=== PATIENT | male | born 1960 | race Caucasian/White ===

== ENCOUNTER → 2017-04-03 | Outpatient (CLI) | payer MEDICARE, BC ==
[2015-04-15 16:20] VITALS: BP 125/73
[~2017-04-03] MED LIST: ASPI-482 PO; FLUO40CA2 PO; FURO80TA3 PO; GABA-585 PO; INSU100C SQ; LEVO200T PO; LISI-338 PO; OMEP40CA5 PO; SIMV40TA3 PO
--- NOTE | 2017-04-03 10:21 | RAD ---
Indication: Right upper quadrant pain. Time of exam 10 0 4:00 AM There are surgical clips in the gallbladder fossa. The bowel gas pattern is nonobstructed. No pathologic calcifications are seen. Impression: No acute abnormality is detected.
== END | disposition home or self-care (01) ==
LOC: DXRAD 09:53
PROVIDERS: ATTEND Physician Assistant
DX: R10.11 Right upper quadrant pain (principal)
CPT/HCPCS: 74020

== ENCOUNTER → 2017-10-28 | Outpatient (CLI) | payer MEDICARE, BC ==
[2015-04-15 16:20] VITALS: BP 125/73
--- NOTE | 2017-10-28 13:13 | RAD ---
Left ankle, 3 views, 10/28/2017: History: Pain and swelling No ankle fracture or dislocation is identified. There is moderate diffuse soft tissue swelling. Arterial calcifications are noted. Left foot, 3 views, 10/28/2017: There is deformity of the navicular bone suggesting old trauma versus avascular necrosis. There is severe associated degenerative change at its articulation with the cuneiform bones and to a lesser degree at the talonavicular articulation. There is chronic bony fragmentation along the dorsal aspect of the ventricular bowel. No acute fracture or dislocation is identified. IMPRESSION: 1. Navicular bone deformity and mild fragmentation with associated severe degenerative change at its articulation with the cuneiform bones. The findings suggest old trauma versus avascular necrosis. 2. No acute bony abnormality is detected.
== END | disposition home or self-care (01) ==
LOC: DXRAD 12:15
PROVIDERS: ATTEND Podiatrist Foot & Ankle Surgery
DX: M19.072 Primary osteoarthritis, left ankle and foot (principal)
CPT/HCPCS: 73610; 73630

== ENCOUNTER → 2017-12-30 | Outpatient (CLI) | payer MEDICARE, BC ==
[2015-04-15 16:20] VITALS: BP 125/73
--- NOTE | 2017-12-30 14:30 | RAD ---
Left wrist, 3 views, 12/30/2017: History: Wrist pain No acute fracture or dislocation is identified. No significant arthritic change is seen. Arterial calcifications are evident. IMPRESSION: No acute left wrist abnormality is detected.
== END | disposition home or self-care (01) ==
LOC: PMG 13:54
PROVIDERS: ATTEND Physician Assistant
DX: I70.298 Other atherosclerosis of native arteries of extremities, other extremity (principal)
CPT/HCPCS: 73110

== ENCOUNTER → 2018-02-24 | Outpatient (CLI) | payer MEDICARE, BC ==
[2015-04-15 16:20] VITALS: BP 125/73
--- NOTE | 2018-02-24 15:24 | RAD ---
History: Foot and ankle pain, Charcot arthropathy. Comparison: Left ankle and foot radiographs October 28, 2017. Findings: Weightbearing AP, lateral, and oblique views of the left ankle. There is diffuse soft tissue swelling of the left ankle. No acute fracture or dislocation is identified. No significant tibiotalar degeneration is seen. Weight-bearing AP, lateral, and oblique views of the left foot. Areas of osteolysis as well as sclerosis can be seen involving the midfoot. Findings would be compatible with provided history of Charcot arthropathy. No Lisfranc disruption is identified. Foot arch appears preserved. Small plantar calcaneal enthesophyte is present. There is soft tissue swelling of the dorsal foot. Arterial calcifications are seen. Impression: 1. Appearance of the midfoot would be compatible with provided history of Charcot arthropathy, fairly similar to previous study. 2. No Lisfranc disruption is identified at this time. 3. Soft tissue swelling of the ankle and foot. Electronically signed by: Eulogio Johnson MD (02/24/2018 3:21 PM) [facility]
== END | disposition home or self-care (01) ==
LOC: DXRAD 11:52
PROVIDERS: ATTEND Podiatrist Foot & Ankle Surgery
DX: M79.89 Other specified soft tissue disorders (principal)
CPT/HCPCS: 73610; 73630

== ENCOUNTER → 2019-01-11 | Outpatient (CLI) | payer MEDICARE, BC ==
[2015-04-15 16:20] VITALS: BP 125/73
--- NOTE | 2019-01-11 13:25 | RAD ---
EXAM: Thyroid sonogram. HISTORY: Thyromegaly. TECHNIQUE: Sonographic imaging of the thyroid was performed. COMPARISON: None. FINDINGS: The right thyroid lobe measures 4.5 x 1.2 x 1.6 cm. The left thyroid lobe measures 3.0 x 1.4 x 1.1 cm. The thyroid isthmus measures 2.6 mm in thickness. The thyroid parenchyma is diffusely heterogeneous. There is a 9 x 6 x 3 mm hypoechoic lesion within the inferior right thyroid lobe, possibly a hypoechoic nodule or cyst. There is a smaller hypoechoic nodule within the superior right thyroid lobe measuring 7 x 5 x 2 mm. No discrete lesion is seen within the left thyroid lobe. IMPRESSION: Slightly decreased left thyroid size and diffusely heterogeneous thyroid parenchyma. There are subcentimeter lesions within the right thyroid lobe, the largest of which measures 9 mm and may be a slightly complicated cyst or solid nodule. Electronically signed by: Patito Kelly MD (01/11/2019 1:23 PM) [facility]
== END | disposition home or self-care (01) ==
LOC: US 07:55
PROVIDERS: ATTEND Registered Nurse
DX: E01.0 Iodine-deficiency related diffuse (endemic) goiter (principal); E07.89 Other specified disorders of thyroid
CPT/HCPCS: 76536

== ENCOUNTER 2019-05-01 10:41 | Emergency (ER) | payer MEDICARE, BC ==
[~2019-05-01] VITALS: Ht 185.4 cm; Wt 120.2 kg
--- NOTE | 2019-05-01 11:16 | PHYS DOC ---
Past History Past Medical History: Angina, CAD, Depression, Diabetes, Gallstones, GERD, High Cholesterol, Hypertension, Hypothyroid, Other Past Surgical History: Appendectomy, Cholecystectomy, Other Alcohol Use: None Drug Use: None Adult General Chief Complaint Chief Complaint: DIZZY/LIGHT HEADED [facility] HPI 59-year-old male presents with dizziness and diarrhea. The patient has been having intermittent episodes of dizziness about 6 weeks. These episodes have mo stly been when he has to change position such as bending over and standing back up or lying on the ground a standing back up. Sometimes, these episodes have happened when his blood sugar is in the 50s. The patient is a diabetic with an insulin pump. Yesterday he had a period of dizziness that lasted for more than just a couple of minutes. He was feeling very off balance and wobbly. He had a couple episodes of vomiting, but it was just phlegm. He continues to feel nauseated today. He has had several bouts of diarrhea both yesterday and this morning. He has not had a normal stool for 2 days. The patient does also give loose stool with hypoglycemia. He denies fever or chills. He denies any falls or trauma. Review of Systems Review of Systems Constitutional: Denies fever or chills [] Eyes: Denies change in visual acuity, redness, or eye pain [] HENT: Denies nasal congestion or sore throat [] Respiratory: Denies cough or shortness of breath [] Cardiovascular: No additional information not addressed in HPI [] GI: abdominal pain, nausea, vomiting, diarrhea [] : Denies dysuria or hematuria [] Musculoskeletal: Denies back pain or joint pain [] Integument: Denies rash or skin lesions [] Neurologic: Dizziness. Denies headache, focal weakness or sensory changes [] Endocrine: Denies polyuria or polydipsia [] All other systems were reviewed and found to be within normal limits, except as documented in this note. Current Medications Current Medications Current Medications Medications (Trade) Dose Ordered Sig/Brandie Start Time Stop Time Status Last Admin Dose Admin Ondansetron HCl (Zofran) 4 mg 1X ONCE 05/01/19 11:15 05/01/19 11:16 Sodium Chloride 1,000 ml @ 1,000 mls/hr 1X ONCE 05/01/19 11:00 05/01/19 11:59 Allergies Allergies Allergies Coded Allergies Type Severity Reaction Last Updated Verified metoclopramide Allergy Unknown 04/15/15 No niacin Allergy Unknown 04/15/15 No Physical Exam Physical Exam Constitutional: Well developed, obese, well nourished, no acute distress, non- toxic appearance. [] HENT: Normocephalic, atraumatic, bilateral external ears normal, oropharynx moist, no oral exudates, nose normal. [] Eyes: PERRLA, EOMI, conjunctiva normal, no discharge. [] Neck: Normal range of motion, no tenderness, supple, no stridor. [] Cardiovascular:Heart rate regular rhythm, no murmur [] Lungs & Thorax: Bilateral breath sounds clear to auscultation [] Abdomen: Bowel sounds normal, soft, no tenderness, no masses, no pulsatile masses. [] Skin: Warm, dry, no erythema, no rash. [] Back: No tenderness, no CVA tenderness. [] Extremities: No tenderness, no cyanosis, no clubbing, ROM intact, no edema. [] Neurologic: Alert and oriented X 3, normal motor function, normal sensory function, no focal deficits noted. [] Psychologic: Affect normal, judgement normal, mood normal. [] EKG EKG [] Radiology/Procedures Radiology/Procedures [] Impressions: RS Compliance Statement: One or more of the following individualized dose reduction techniques were utilized for this examination: 1. Automated exposure control 2. Adjustment of the mA and/or kV according to patient size 3. Use of iterative reconstruction technique Electronically signed by: Armando Iyer MD (05/01/2019 1:26 PM) [facility] DICTATED AND SIGNED BY: ARMANDO IYER MD DATE: 05/01/19 1326 CC: EDITH ZARAGOZA DO; RIZWANA THRASHER MD ~ CT brain without contrast. HISTORY: Dizziness CT scan of brain was done without contrast. Sinuses are clear. Mastoids are normally aerated. There is no intracranial hemorrhage or subdural hematoma. There is no mass or shift of the midline. An acute CVA is not identified. IMPRESSION: 1. No intracranial hemorrhage or acute finding noted. Electronically signed by: Armando Iyer MD (05/01/2019 1:21 PM) [facility] DICTATED AND SIGNED BY: ARMANDO IYER MD DATE: 05/01/19 1321 CC: EDITH ZARAGOZA DO; RIZWANA THRASHER MD ~ Course & Med Decision Making Course & Med Decision Making Pertinent Labs and Imaging studies reviewed. (See chart for details) The patient's labs are unremarkable. His head CT unremarkable. We have given the patient a liter of normal saline. He was still having some dizziness so we tried 2.5 of meclizine. After period of time, this did seem to help with his dizziness. The patient is feeling better at this time. We'll discharge him with a trial prescription of meclizine. He is stable for discharge at this time. Will follow-up with his PCP if he has further difficulty. He'll also consider specialty consult if necessary. [] Dragon Disclaimer Dragon Disclaimer This electronic medical record was generated, in whole or in part, using a voice recognition dictation system. Departure Departure: Impression: Primary Impression: Dizziness Disposition: 01 HOME, SELF-CARE Condition: STABLE Referrals: RIZWANA THRASHER MD (PCP) Patient Instructions: Dizziness, Trfx-ds-Zbxy Scripts Meclizine Hcl (MECLIZINE HCL) 12.5 Mg Tablet 1 TAB PO TID PRN for DIZZINESS, #30 TAB 0 Refills Prov: EDITH ZARAGOZA DO 05/01/19 EDITH ZARAGOZA DO May 01, 2019 11:16
[2019-05-01 11:34] LABS: BILIRUBIN,URINE NEG (NEG); CLARITY,URINE CLEAR; COLOR,URINE AMBER; GLUCOSE,URINE 500 mg/dL (NEG); NITRITE,URINE NEG (NEG); UROBILINOGEN,URINE 0.2 mg/dL (0.2 mg/dL)
[2019-05-01 11:35] LABS: BACTERIA,URINE 0 /HPF (0-FEW); RBC,URINE 0 /HPF (0-2); WBC,URINE 0 /HPF (0-4)
[2019-05-01] MEDS: ONDANSETRON PF 4 MG/2 ML VIAL. IV ONE (11:43)
[2019-05-01] MEDS: IV NORMAL SALINE 1,000ML 1,000 ML IV ONE (11:44)
[2019-05-01 11:58] LABS: BASO % 1 % (0-3); EOS # 0.1 x10^3/uL (0.0-0.7); EOS % 2 % (0-3); HEMATOCRIT 38.1 % (39.0-53.0); LYMPH # 1.1 x10^3/uL (1.0-4.8); LYMPH % 23 % (24-48); MEAN CORPUSCULAR HEMOGLOBIN 29 pg (25-35); MEAN CORPUSCULAR HGB CONC 34 g/dL (31-37); MEAN CORPUSCULAR VOLUME 86 fL (79-100); MONO # 0.3 x10^3/uL (0.0-1.1); MONO % 6 % (0-9); NEUT # 3.2 x10^3uL (1.8-7.7); NEUT % 68 % (31-73); PLATELET COUNT 160 x10^3/uL (140-400); RED BLOOD COUNT 4.44 x10^6/uL (4.30-5.70); RED CELL DISTRIBUTION WIDTH 13.8 % (11.5-14.5); WHITE BLOOD COUNT 4.7 x10^3/uL (4.0-11.0)
[2019-05-01 12:07] LABS: ALBUMIN 3.2 g/dL (3.4-5.0); CALCIUM 8.6 mg/dL (8.5-10.1); CREATININE 1.4 mg/dL (0.7-1.3); GFR 51.5; POTASSIUM 4.1 mmol/L (3.5-5.1); TOTAL BILIRUBIN 0.8 mg/dL (0.2-1.0); TOTAL PROTEIN 6.3 g/dL (6.4-8.2)
[2019-05-01] MEDS: MECLIZINE 12.5 MG TABLET. PO STA (13:06)
[2019-05-01 13:21] VITALS: BP 120/54
--- NOTE | 2019-05-01 13:24 | RAD ---
CT brain without contrast. HISTORY: Dizziness CT scan of brain was done without contrast. Sinuses are clear. Mastoids are normally aerated. There is no intracranial hemorrhage or subdural hematoma. There is no mass or shift of the midline. An acute CVA is not identified. IMPRESSION: 1. No intracranial hemorrhage or acute finding noted. Electronically signed by: Armando Rowe MD (05/01/2019 1:21 PM) [facility]
[2019-05-01] MEDS ORDERED: MECL12.52 PO (14:13)
== END 2019-05-01 14:42 | disposition home or self-care (01) ==
LOC: ER 10:41
DX: R42 Dizziness and giddiness (principal); R19.7 Diarrhea, unspecified; R11.2 Nausea with vomiting, unspecified; R10.9 Unspecified abdominal pain; E11.65 Type 2 diabetes mellitus with hyperglycemia; I25.10 Atherosclerotic heart disease of native coronary artery without angina pectoris; K21.9 Gastro-esophageal reflux disease without esophagitis; E78.00 Pure hypercholesterolemia, unspecified; I10 Essential (primary) hypertension; E03.9 Hypothyroidism, unspecified; Z90.89 Acquired absence of other organs; Z90.49 Acquired absence of other specified parts of digestive tract; Z88.1 Allergy status to other antibiotic agents; Z88.8 Allergy status to other drugs, medicaments and biological substances
CPT/HCPCS: 36415; 70450; 80053; 81001; 84484; 85025; 93005; 96361; 96374; 99285; J2405; J8597; J7030

== ENCOUNTER 2019-05-23 17:51 | Emergency (ER) | payer MEDICARE, BC ==
[~2019-05-23] VITALS: Ht 185.4 cm; Wt 118.8 kg
[~2019-05-23 17:51] MED LIST changes: +MECL12.52 PO
[2019-05-23] MEDS ORDERED: IV NORMAL SALINE 1,000ML 1,000 ML IV ONE (18:30)
[2019-05-23 18:38] LABS: BASO # 0.1 x10^3/uL (0.0-0.2); BASO % 2 % (0-3); EOS # 0.2 x10^3/uL (0.0-0.7); EOS % 4 % (0-3); HEMATOCRIT 38.8 % (39.0-53.0); HEMOGLOBIN 13.2 g/dL (13.0-17.5); LYMPH # 1.4 x10^3/uL (1.0-4.8); LYMPH % 31 % (24-48); MEAN CORPUSCULAR HEMOGLOBIN 29 pg (25-35); MEAN CORPUSCULAR HGB CONC 34 g/dL (31-37); MEAN CORPUSCULAR VOLUME 86 fL (79-100); MONO # 0.3 x10^3/uL (0.0-1.1); MONO % 6 % (0-9); NEUT # 2.6 x10^3uL (1.8-7.7); NEUT % 57 % (31-73); PLATELET COUNT 152 x10^3/uL (140-400); RED BLOOD COUNT 4.52 x10^6/uL (4.30-5.70); RED CELL DISTRIBUTION WIDTH 14.2 % (11.5-14.5); WHITE BLOOD COUNT 4.5 x10^3/uL (4.0-11.0)
[2019-05-23 18:59] LABS: ALBUMIN 3.5 g/dL (3.4-5.0); ALBUMIN/GLOBULIN RATIO 1.2 (1.0-1.7); CALCIUM 8.7 mg/dL (8.5-10.1); CREATININE 1.2 mg/dL (0.7-1.3); GFR 61.6; POTASSIUM 4.2 mmol/L (3.5-5.1); TOTAL BILIRUBIN 0.6 mg/dL (0.2-1.0); TOTAL PROTEIN 6.4 g/dL (6.4-8.2)
--- NOTE | 2019-05-23 18:59 | RAD ---
Exam: Chest 2 views INDICATION: Cough TECHNIQUE: Frontal and lateral views of the chest Comparisons: None FINDINGS: The cardiomediastinal silhouette and pulmonary vessels are within normal limits. Patchy opacity at the left lung base. Remaining lungs are clear. IMPRESSION: Patchy opacity in the left lower lobe, favored to represent pneumonia. Follow-up imaging posttreatment to ensure resolution is recommended. Electronically signed by: Valentina Rosales MD (05/23/2019 6:56 PM) [facility]
[2019-05-23 19:03] LABS: COLOR,URINE YELLOW
[2019-05-23 19:04] LABS: BILIRUBIN,URINE NEG (NEG); CLARITY,URINE CLEAR; GLUCOSE,URINE 500 mg/dL (NEG); NITRITE,URINE NEG (NEG); UROBILINOGEN,URINE 0.2 mg/dL (0.2 mg/dL)
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
[2019-05-23 19:13] LABS: BACTERIA,URINE 0 /HPF (0-FEW); RBC,URINE 0 /HPF (0-2); SQUAMOUS EPITHELIAL CELL,UR OCC /LPF; WBC,URINE 0 /HPF (0-4)
[2019-05-23] MEDS ORDERED: AZIT250T6 PO (19:46)
[2019-05-23 20:32] VITALS: BP 140/60
--- NOTE | 2019-05-24 02:35 | EKG ---
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
== END 2019-05-23 20:34 | disposition home or self-care (01) ==
LOC: ER 17:51
DX: R55 Syncope and collapse (principal); J18.1 Lobar pneumonia, unspecified organism; I25.10 Atherosclerotic heart disease of native coronary artery without angina pectoris; E11.9 Type 2 diabetes mellitus without complications; K21.9 Gastro-esophageal reflux disease without esophagitis; E78.00 Pure hypercholesterolemia, unspecified; I10 Essential (primary) hypertension; E03.9 Hypothyroidism, unspecified; Z90.89 Acquired absence of other organs; Z90.49 Acquired absence of other specified parts of digestive tract; Z87.891 Personal history of nicotine dependence; Z88.1 Allergy status to other antibiotic agents; Z88.8 Allergy status to other drugs, medicaments and biological substances
CPT/HCPCS: 36415; 71046; 80053; 81001; 82553; 83605; 83735; 83880; 84484; 85025; 85610; 85730; 93005; 96360; 99285-25; J7030

== ENCOUNTER → 2019-09-05 | Outpatient (CLI) | payer MEDICARE, BC ==
[~2019-09-05] MED LIST changes: +AZIT250T6 PO; +OMEP40CA45 PO; -OMEP40CA5 PO; +SIMV40TA18 PO; -SIMV40TA3 PO
--- NOTE | 2019-09-05 17:24 | RAD ---
Three-view left foot study Clinical indications: Left foot pain. FINDINGS: Small plantar spur of the calcaneus is evident. There is erosive arthropathy of the intertarsal joints and the tarsal metatarsal joints. This may be seen with rheumatoid arthritis or septic arthritis or Charcot's arthropathy if there is a history of diabetic neuropathy. There is a small soft tissue defect of the medial aspect of the first digit at the level of the distal aspect of the first proximal phalanx. This could represent a soft tissue wound. No underlying osteomyelitis is seen here. 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 There is associated fragmentation. This is typically seen with Charcot's neuroarthropathy in association with diabetes. Differential diagnosis includes septic arthritis or rheumatoid arthritis. Soft tissue wound of the first digit without underlying osteomyelitis. Electronically signed by: Yonatan Stacy MD (09/05/2019 5:21 PM) [facility]
== END | disposition home or self-care (01) ==
LOC: PMG 11:49
PROVIDERS: ATTEND Family Medicine
DX: M12.872 Other specific arthropathies, not elsewhere classified, left ankle and foot (principal); M77.32 Calcaneal spur, left foot; E11.610 Type 2 diabetes mellitus with diabetic neuropathic arthropathy; L03.032 Cellulitis of left toe
CPT/HCPCS: 73630

== ENCOUNTER → 2019-11-24 | Outpatient (CLI) | payer MEDICARE, BC ==
[~2019-11-24] MED LIST changes: -MECL12.52 PO; +MECL12.573 PO
--- NOTE | 2019-11-24 17:33 | RAD ---
MR#: [id number] Date of Study: 11/24/2019 Ordering Physician: LUKE MUELLER, Referring Physician: LUKE MUELLER, Tech: Rianna Garcia, ETTAMS, RVT, RTR APPROVED REPORT Patient Location: OUT-PATIENT Indications PAD Grayscale images of the bilateral lower extremity arterial vessels demonstrate mild diffuse intimal h yperplasia and atherosclerotic plaque On the right side spectral waveforms are mostly biphasic. Probable 50% stenosis involving the posteri or tibial artery. Otherwise there is 3 vessel runoff. On the left side there are mostly again triphasic and biphasic waveforms with three-vessel runoff bel ow the knee. Probable greater than 50% stenosis involving the dorsalis pedis artery. Risk Factors History of Lower Extremity PAD: Bilaterally Hypertension Diabetes Surgery/Intervention Bypass Graft 1 : Site : Fem Pop Graft material : Vein VELOCITY AND DOPPLER WAVEFORM ANALYSIS RIGHT cm/secWaveformSeverity LEFT cm/secWaveform Severity pCFA 172.1pCFA 120.0 Prof Fem Art. 81.6Prof Fem Art. 74.5 Fem Art Prox. 115.7Fem Art Prox. 125.2 Fem Art Mid. 133.6Fem Art Mid. 154.6 Fem Art Dist. 120.6Fem Art Dist. 115.7 Pop Art(AK) 100.8Pop Art(AK) 110.4 PEEL OVEN TENDER Prox. 38.0PTA Prox. 80.2 PEEL OVEN TENDER Dist. 79.1PTA Dist. 62.9 Per Art Prox. 85.9Per Art Prox. 128.3 Per Art Mid. 61.5Per Art Mid. MARCIE Prox. 95.8ATA Prox. MARCIE Dist. MARCIE Dist. 103.4 DPA 86DPA 201 Critical Notification Critical Value: No <Conclusion> 1. No significant bilateral high-grade above-knee occlusive disease. 2. Probable moderate disease involving the right posterior tibial and left anterior tibial vessels. Signed by : Luke Mueller, Electronically Approved : 11/24/2019 17:32:47
--- NOTE | 2019-11-24 17:34 | RAD ---
MR#: [id number] Date of Study: 11/24/2019 Ordering Physician: LUKE MUELLER, Referring Physician: LUKE MUELLER, Tech: Rianna Garcia RDMS, RVT, RTR APPROVED REPORT Patient Location : OUT-PATIENT Indications Lower Extremity Edema : Bilateral Venous Ulcers Left toe and heel Risk Factors The left saphenofemoral junction does not reveal any obvious evidence of thrombus. The left great sap henous vein and lesser saphenous veins are patent. The left great saphenous vein measures 5.5 mm and has a maximum reflux time of 3.1 seconds throughout its course. The left lesser saphenous vein does n ot show any evidence of reflux. The right greater saphenous vein was previously used as a bypass cond uit. No significant reflux noted in the right lesser saphenous vein. Greater Saphenous Veins (GSV) Significant venous relux noted in the LEFT GSV at the following levels : Superficial Femoral Junction , Proximal Thigh, Mid Thigh, Distal Thigh, Proximal Calf, Mid Calf, Distal Calf Critical Notification Critical Value: No <Conclusion> 1. Positive for reflux in the left greater saphenous vein. Signed by : Luke Mueller, Electronically Approved : 11/24/2019 17:34:32
== END | disposition home or self-care (01) ==
LOC: US 12:31
PROVIDERS: ATTEND Internal Medicine Cardiovascular Disease
DX: I73.9 Peripheral vascular disease, unspecified (principal); R60.0 Localized edema
CPT/HCPCS: 93925; 93970

== ENCOUNTER 2020-11-14 10:25 | Emergency (ER) | payer MEDICARE, BC ==
[~2020-11-14] VITALS: Ht 185.4 cm; Wt 126.0 kg
[~2020-11-14 10:25] MED LIST changes: -LISI-338 PO; +LISI-517 PO; -MECL12.573 PO; +MECL12.574 PO
[2020-11-14 10:57] VITALS: BP 163/92
[2020-11-14] MEDS ORDERED: PROCHLORPERAZINE 10 MG/2 ML VIAL. IV ONE (11:15)
[2020-11-14] MEDS ORDERED: diphenhydrAMINE 50 MG/ML VIAL IVP ONE (11:15)
[2020-11-14] MEDS ORDERED: KETOROLAC 15 MG/ML VIAL. IVP ONE (11:15)
[2020-11-14] MEDS ORDERED: IV NORMAL SALINE 1,000ML 1,000 ML IV ONE (11:15)
[2020-11-14] MEDS ORDERED: IOHEXOL 350 MG/ML 100 ML VIAL. IV ONE (11:15)
--- NOTE | 2020-11-14 11:15 | PHYS DOC ---
Past History Past Medical History: Angina, Anxiety, CAD, Depression, Diabetes, Gallstones, GERD, High Cholesterol, Hypertension, Hypothyroid Past Surgical History: Appendectomy, Cholecystectomy Smoking: Quit Greater Than 1 Year Alcohol Use: None Drug Use: None General Adult EDM: Chief Complaint: HEADACHE HPI: HPI: History obtained from patient. Patient is a 60-year-old male with multiple comorbidities including insulin-dependent diabetes, hypertension, CAD, GERD who presents with chief complaint of headache. Patient states 4 days ago he was working on his car outside without gloves on. He states he developed some frostbite to the distal tips of all of his fingertips. He was seen at [facility] for frostbite. He states he developed a mild headache at that time. CT imaging was obtained and was unremarkable. He was ultimately discharged home. He states 2 days later he followed up at [facility] for recurrent chest pain. He states a heart catheterization was performed in his right wrist. He states that heart cath showed no acute blockag es. He states that his headaches seem to worsen gradually that evening after discharge home. He states that he has tried Tylenol with minimal relief. He notes he was seen by his primary care physician earlier today for follow-up and had a headache at that time. He states him trying Tylenol without relief. He notes the head pain is located left temporal region. States it has gradually improved but is not gone away completely. States the head pain location has not moved. Denies visual changes. Denies nausea or vomiting. Denies weakness or slurred speech. Denies confusion. Denies history of chronic headaches. Denies neck pain. Denies fever. Denies seizure-like activity. Denies IV drug use. States his blood sugars have been well controlled. Denies trauma. Patient denies acute onset of headache reaching maximal intensity in under one hour. This is neither the worst headache that Patient has ever experienced, nor was the onset timed with exertional activity or trauma. Patient has not experienced any fever, unusual neck pain or stiffness, syncope, or near syncope. Patient denies numbness, tingling, or weakness of the extremities. Patient also denies personal history of intracranial hemorrhage (including SAH), aneurysm, or AV malformation. Review of Systems: Review of Systems: Constitutional: Denies fever or chills Eyes: Denies change in visual acuity HENT: Denies nasal congestion or sore throat Respiratory: Denies cough or shortness of breath Cardiovascular: Denies chest pain or edema GI: Denies abdominal pain, nausea, vomiting, bloody stools or diarrhea : Denies dysuria Musculoskeletal: Denies back pain or joint pain Integument: Denies rash Neurologic: Positive for headache Endocrine: Denies polyuria or polydipsia Lymphatic: Denies swollen glands Psychiatric: Denies depression or anxiety Allergies: Allergies: Allergies Coded Allergies Type Severity Reaction Last Updated Verified levomilnacipran Allergy Unknown 05/23/19 Yes metoclopramide Allergy Unknown 04/15/15 No niacin Allergy Unknown 04/15/15 No Physical Exam: PE: Constitutional: Well developed, well nourished, no acute distress, non-toxic appearance. [] HENT: Normocephalic, atraumatic, bilateral external ears normal, oropharynx moist, no oral exudates, nose normal. [] Eyes: PERRLA, EOMI, conjunctiva normal, no discharge. [] Neck: Normal range of motion, no tenderness, supple, no stridor. [] Cardiovascular:Heart rate regular rhythm, no murmur [] Lungs & Thorax: Bilateral breath sounds clear to auscultation [] Abdomen: soft, no tenderness, no masses, no pulsatile masses. [] Skin: Warm, dry, no erythema, no rash. [] Back: No tenderness, no CVA tenderness. [] Extremities: No tenderness, no cyanosis, no clubbing, ROM intact, no edema. [] Neurologic: Alert with intact cognitive function. No aphasia, dysarthria, or neglect. GCS 15. Pupils 3 mm briskly reactive b/l. No APD present. Cranial nerves 2-12 grossly intact; no facial asymmetry present, tongue midline, shoulder shrugging strength intact. Strength 5/5 and symmetric throughout. Light touch sensation intact throughout. Cerebellar testing appropriate without evidence of dysdiadochokinesia. DTR's 2+ in all 4 extremities. Negative pronator drift bilaterally. Gait normal Psychologic: Affect normal, judgement normal, mood normal. [] Current Patient Data: Labs: Vital Signs Date Time Temp Pulse Resp B/P (MAP) Pulse Ox O2 Delivery O2 Flow Rate FiO2 11/14/20 10:57 96.7 63 16 163/92 (115) 100 Room Air Vital Signs: Vital Signs Date Time Temp Pulse Resp B/P (MAP) Pulse Ox O2 Delivery O2 Flow Rate FiO2 11/14/20 10:57 96.7 63 16 163/92 (115) 100 Room Air EKG: EKG: [] Radiology/Procedures: Radiology/Procedures: [address] [id number] IMAGING REPORT Signed PATIENT: KEVIN ANSARI ACCOUNT: [id number] : 1960 LOCATION: ER AGE: 60 SEX: M EXAM STATUS: REG ER ORD. PHYSICIAN: GOOD LEMOS DO REASON: L temporal SOSA - CONTRAST ORDERED/DIABETIC PROCEDURE: CT ANGIOGRAPHY HEAD AND NECK STUDY: CT angiography of the head and neck INDICATION: Left temporal headache COMPARISON: CT head 11/14/2020 TECHNIQUE: Axial CT imaging of the head and neck utilizing angiography protocol and performed after the intravenous administration of intravenous contrast. Multiplanar reformats and 3D MIP acquisitions were obtained. Encountered areas of stenosis are measured per NASCET criteria. One or more of the following individualized dose reduction techniques were utilized for this examination: 1. Automated exposure control 2. Adjustment of the mA and/or kV according to patient size 3. Use of iterative reconstruction technique. FINDINGS: CTA NECK: Arch/Proximal Great Vessels: The arch is normal configuration. Great vessels are patent. Carotid Bifurcation/Cervical ICA: Common carotid arteries are patent. There are mild calcifications in the carotid bulbs. No significant narrowing of the internal carotid arteries. Vertebral Arteries: Patent. CTA HEAD: Posterior Circulation: Intradural vertebral artery is small but patent, likely normal variant. Left intradural vertebral artery is patent. The basilar artery, superior cerebellar arteries, and posterior cerebral arteries are patent. Anterior Circulation: The intracranial internal carotid arteries are patent. Mild calcifications in the right supraclinoid internal carotid artery. Middle cerebral and anterior cerebral arteries are patent. No aneurysm, dissection, stenosis, or occlusion. Veins: Jugular veins and dural venous sinuses are patent. MISCELLANEOUS: There is an 8 mm right paratracheal lymph node and other small lymph nodes in the superior mediastinum. No cervical lymphadenopathy. No acute osseous abnormality. IMPRESSION: No acute arterial abnormality in the head or neck. Electronically signed by: Jannet Griffin MD (11/14/2020 1:48 PM) [id number] DICTATED AND SIGNED BY: JANNET GRIFFIN MD DATE: 11/14/20 1250 CC: RIZWANA THRASHER MD; GOOD LEMOS DO ~MTH0 0 [] Heart Score: Risk Factors: Risk Factors: DM, Current or recent (<one month) smoker, HTN, HLP, family history of CAD, obesity. Risk Scores: Score 0 - 3: 2.5% MACE over next 6 weeks - Discharge Home Score 4 - 6: 20.3% MACE over next 6 weeks - Admit for Clinical Observation Score 7 - 10: 72.7% MACE over next 6 weeks - Early Invasive Strategies Course & Med Decision Making: Course & Med Decision Making Pertinent Labs and Imaging studies reviewed. (See chart for details) [] Patient is a pleasant 60-year-old male who presents with chief complaint of left temporal headache for the past 3 days. Denies trauma or injury. States he was seen at an outside hospital and had a normal noncontrast head CT. He states his headache has persisted since then. Initial neurologic exam unremarkable. No deficits appreciated. Denies any history of ocular disorders. Given the patient is not had CT angio imaging of the head neck this was obtained. No signs of acute abnormality to explain his symptoms. Visual acuity was assessed and was normal. No signs of injected conjunctive a. Pupils soft to palpation. Patient was given migraine medication. Repeat assessment he states his headache has resolved completely. His repeat neurologic exam remained stable. I did discuss the possibility of hospitalization for MRI imaging for his headache given he has no history of this. Patient is declining and would prefer to follow-up outpatient. Overall he feels reasonable. He will be given referral to a neurologist. Family was present at bedside to take the patient home and watch him closely. Return precautions discussed and understo od. Stable for discharge. Dragon Disclaimer: Son Disclaimer: This electronic medical record was generated, in whole or in part, using a voice recognition dictation system. Departure Departure: Impression: Primary Impression: Headache Qualified Codes: R51.9 - Headache, unspecified Disposition: 01 DC HOME SELF CARE/HOMELESS Condition: STABLE Referrals: RIZWANA THRASHER MD (PCP) JONATHAN BERRY MD Patient Instructions: Migraine Headache Additional Instructions: Please follow-up your primary care physician in the next 2 to 3 days. GOOD LEMOS DO Nov 14, 2020 11:15
[2020-11-14 12:04] LABS: BASO # 0.1 x10^3/uL (0.0-0.2); BASO % 1 % (0-3); EOS # 0.1 x10^3/uL (0.0-0.7); EOS % 2 % (0-3); HEMATOCRIT 39.4 % (39.0-53.0); HEMOGLOBIN 13.5 g/dL (13.0-17.5); LYMPH # 1.4 x10^3/uL (1.0-4.8); LYMPH % 21 % (24-48); MEAN CORPUSCULAR HEMOGLOBIN 30 pg (25-35); MEAN CORPUSCULAR HGB CONC 34 g/dL (31-37); MEAN CORPUSCULAR VOLUME 89 fL (79-100); MONO # 0.5 x10^3/uL (0.0-1.1); MONO % 7 % (0-9); NEUT # 4.6 x10^3uL (1.8-7.7); NEUT % 69 % (31-73); PLATELET COUNT 158 x10^3/uL (140-400); RED BLOOD COUNT 4.43 x10^6/uL (4.30-5.70); RED CELL DISTRIBUTION WIDTH 13.8 % (11.5-14.5); WHITE BLOOD COUNT 6.7 x10^3/uL (4.0-11.0)
[2020-11-14 12:13] LABS: CALCIUM 8.4 mg/dL (8.5-10.1); CREATININE 1.3 mg/dL (0.7-1.3); GFR 55.9; POTASSIUM 4.2 mmol/L (3.5-5.1)
--- NOTE | 2020-11-14 12:39 | RAD ---
STUDY: CT head without contrast INDICATION: Left temporal pain. COMPARISON: 04/23/2019 TECHNIQUE: Axial CT imaging through the head without the use of intravenous contrast. Sagittal and co olegario reformats were obtained. One or more of the following individualized dose reduction techniques were utilized for this examinat ion: 1. Automated exposure control 2. Adjustment of the mA and/or kV according to patient size 3. Use of iterative reconstruction technique. FINDINGS: No acute intracranial hemorrhage. Normal jenkins-white matter interface with well delineated deep jenkins n uclei. No localized mass effect, midline shift or hydrocephalus. Carotid siphon calcific atherosclerosis. Brain parenchymal volume is within normal limits as is overa ll attenuation pattern. No newly seen soft tissue abnormality to account for the patient's symptoms. Unchanged orbits. Intact calvarium. Normally aerated mastoid air cells, middle ears and visualized paranasal sinuses. No debr is seen within the external auditory canals. IMPRESSION: No acute intracranial abnormality by CT. No significant change from the 05/01/2019 exam. Electronically signed by: IWONA DOHERTY MD (11/14/2020 12:37 PM) [id number]
--- NOTE | 2020-11-14 13:51 | RAD ---
STUDY: CT angiography of the head and neck INDICATION: Left temporal headache COMPARISON: CT head 11/14/2020 TECHNIQUE: Axial CT imaging of the head and neck utilizing angiography protocol and performed after t he intravenous administration of intravenous contrast. Multiplanar reformats and 3D MIP acquisitions were obtained. Encountered areas of stenosis are measured per NASCET criteria. One or more of the following individualized dose reduction techniques were utilized for this examinat ion: 1. Automated exposure control 2. Adjustment of the mA and/or kV according to patient size 3. Use of iterative reconstruction technique. FINDINGS: CTA NECK: Arch/Proximal Great Vessels: The arch is normal configuration. Great vessels are patent. Carotid Bifurcation/Cervical ICA: Common carotid arteries are patent. There are mild calcifications i n the carotid bulbs. No significant narrowing of the internal carotid arteries. Vertebral Arteries: Patent. CTA HEAD: Posterior Circulation: Intradural vertebral artery is small but patent, likely normal variant. Left i ntradural vertebral artery is patent. The basilar artery, superior cerebellar arteries, and posterior cerebral arteries are patent. Anterior Circulation: The intracranial internal carotid arteries are patent. Mild calcifications in t he right supraclinoid internal carotid artery. Middle cerebral and anterior cerebral arteries are pat ent. No aneurysm, dissection, stenosis, or occlusion. Veins: Jugular veins and dural venous sinuses are patent. MISCELLANEOUS: There is an 8 mm right paratracheal lymph node and other small lymph nodes in the superior mediastinu m. No cervical lymphadenopathy. No acute osseous abnormality. IMPRESSION: No acute arterial abnormality in the head or neck. Electronically signed by: Jannet Griffin MD (11/14/2020 1:48 PM) [id number]
== END 2020-11-14 14:34 | disposition home or self-care (01) ==
LOC: ER 10:25
DX: R51.9 Headache, unspecified (principal); F41.9 Anxiety disorder, unspecified; I25.10 Atherosclerotic heart disease of native coronary artery without angina pectoris; E11.9 Type 2 diabetes mellitus without complications; K21.9 Gastro-esophageal reflux disease without esophagitis; E78.00 Pure hypercholesterolemia, unspecified; I10 Essential (primary) hypertension; E03.9 Hypothyroidism, unspecified; Z87.891 Personal history of nicotine dependence; Z90.89 Acquired absence of other organs; Z90.49 Acquired absence of other specified parts of digestive tract; Z88.1 Allergy status to other antibiotic agents; Z88.8 Allergy status to other drugs, medicaments and biological substances
CPT/HCPCS: 36415; 70450; 70496; 70498; 80048; 85025; 96361; 96374; 96375; 99285; J0780; J1200; J1885; J7030; Q9967

== ENCOUNTER → 2021-08-20 | Outpatient (CLI) | payer MEDICARE, BC ==
[~2021-08-20] MED LIST changes: -LISI-517 PO; +LISI5TAB15 PO; -MECL12.574 PO; +MECL12.582 PO; -OMEP40CA45 PO; +OMEP40CA7 PO
--- NOTE | 2021-08-20 19:51 | CARD ---
MR#: [id number] Date of Study: 08/20/2021 Ordering Physician: LUKE HARRIS, Referring Physician: LUKE HARRIS, Tech: Rianna Stevens, [facility] APPROVED REPORT EXAM: Two-dimensional and M-mode echocardiogram with Doppler and color Doppler. Other Information Quality : AverageHR: 51bpm INDICATION Cardiac Disease: CAD RISK FACTORS Hypertension Hyperlipidemia Diabetes Asthma 2D DIMENSIONS RVDd3.3 (2.9-3.5cm)Left Atrium(2D)3.9 (1.6-4.0cm) IVSd1.0 (0.7-1.1cm)Aortic Root(2D)3.5 (2.0-3.7cm) LVDd5.5 (3.9-5.9cm)LVOT Diameter2.1 (1.8-2.4cm) PWd1.0 (0.7-1.1cm)LVDs3.7 (2.5-4.0cm) FS (%) 32.2 %SV86.8 ml LVEF(%)59.9 (>50%) Aortic Valve AoV Peak Andrés.132.0cm/sAoV VTI33.3cm AO Peak GR.7.0mmHgLVOT Peak Andrés.110.8cm/s LVOT VTI 27.38cmAO Mean GR.4mmHg SALEEM (VMAX)2.93wq4KQA (VTI)2.89cm2 Mitral Valve MV E Vgmurjzf994.9cm/sMV E Peak Gr.5mmHg MV DECEL [id number] A Qlcasfdf424.6cm/s MV E Mean Gr.2mmHgE/A Ratio1.1 Pulmonary Valve PV Peak Hgfbulpq84.2cm/sPV Peak Grad.3mmHg Tricuspid Valve TR P. Snqkeeet895xh/sRAP YZHOCYWR2mpJh TR Peak Gr.89qzWaTISK29tsIf LEFT VENTRICLE The left ventricle is normal size. There is normal left ventricular wall thickness. The left ventricu lar systolic function is normal and the ejection fraction is within normal range. The Ejection Fracti on is 50-55%. There is normal LV segmental wall motion. Transmitral Doppler flow pattern is Grade II- pseudonormal filling dynamics. RIGHT VENTRICLE The right ventricle is normal size. There is normal right ventricular wall thickness. The right ventr icular systolic function is normal. ATRIA The left atrium size is normal. The right atrium size is normal. The interatrial septum is intact wit h no evidence for an atrial septal defect or patent foramen ovale as noted on 2-D or Doppler imaging. AORTIC VALVE The aortic valve is normal in structure and function. Doppler and Color Flow revealed no significant aortic regurgitation. There is no significant aortic valvular stenosis. Calculated aortic valve area is 2.9 cm2 with maximum pressure gradient of 7 mmHg and mean pressure gradient of 4 mmHg. MITRAL VALVE The mitral valve is normal in structure and function. There is no evidence of mitral valve prolapse. There is no mitral valve stenosis. Doppler and Color Flow revealed no mitral valve regurgitation note d. TRICUSPID VALVE The tricuspid valve is normal in structure and function. Doppler and Color Flow revealed trace tricus pid regurgitation with an estimated PAP of 30 mmHg. There is no tricuspid valve stenosis. PULMONIC VALVE The pulmonic valve is not well visualized. Doppler and Color Flow revealed trace pulmonic valvular re gurgitation. There is no pulmonic valvular stenosis. GREAT VESSELS The aortic root is normal in size. The ascending aorta is mildly dilated measuring 3.6 cm. The IVC is dilated. PERICARDIAL EFFUSION There is no evidence of significant pericardial effusion. Critical Notification Critical Value: No <Conclusion> The left ventricular systolic function is normal and the ejection fraction is within normal range. Th e Ejection Fraction is 50-55%. There is normal LV segmental wall motion. The ascending aorta is mildly dilated measuring 3.6 cm. Signed by : Luke Harris, Electronically Approved : 08/20/2021 19:50:49
== END ==
LOC: ECHO 10:55
PROVIDERS: ATTEND Internal Medicine Cardiovascular Disease
DX: I25.10 Atherosclerotic heart disease of native coronary artery without angina pectoris (principal)
CPT/HCPCS: 93306

== ENCOUNTER 2021-10-03 12:35 | Emergency (ER) | payer MEDICARE, BC ==
[~2021-10-03] VITALS: Ht 185.4 cm; Wt 122.9 kg
[2021-10-03] MEDS ORDERED: DIPH,PERTUSS(ACELL),TET VAC/PF 0.5 ML SYRINGE. VAX IM ONE (13:00)
[2021-10-03] MEDS ORDERED: LIDOCAINE 1% PF 30 ML VIAL. INJ ONE (13:00)
--- NOTE | 2021-10-03 14:00 | PHYS DOC ---
Past History Past Medical History: Angina, Anxiety, CAD, Depression, Diabetes, Gallstones, GERD, High Cholesterol, Hypertension, Hypothyroid Additional Past Medical Histor: neuropathy Past Surgical History: Appendectomy, Other Additional Past Surgical Histo: right upper leg. left elbow Smoking: Quit Greater Than 1 Year Alcohol Use: None Drug Use: None Adult General Chief Complaint Chief Complaint: LACERATION/AVULSION HPI HPI Patient is a 61-year-old male patient presenting to the ED today with right thumb laceration that occurred after he accidentally cut himself with a pair of scissors. Patient is right-handed. States tetanus is not up-to-date. Review of Systems Review of Systems Constitutional: Denies fever or chills [] Musculoskeletal: Denies back pain or joint pain [] Integument: Right hand laceration Neurologic: Denies headache, focal weakness or sensory changes [] All other systems were reviewed and found to be within normal limits, except as documented in this note. Current Medications Current Medications Current Medications Medications (Trade) Dose Ordered Sig/Brandie Start Time Stop Time Status Last Admin Dose Admin Diphtheria/ Pertussis/Tetanus Vacc (ADACEL TDap SYRINGE) 0.5 ml ONCE ONCE 10/03/21 13:00 10/03/21 13:06 DC 10/03/21 13:15 0.5 ML Lidocaine HCl (Lidocaine 1% Pf) 30 ml 1X ONCE 10/03/21 13:00 10/03/21 13:06 DC 10/03/21 13:13 30 ML Allergies Allergies Allergies Coded Allergies Type Severity Reaction Last Updated Verified famotidine Allergy Unknown 10/03/21 Yes levomilnacipran Allergy Unknown 05/23/19 Yes metoclopramide Allergy Unknown 04/15/15 No niacin Allergy Unknown 04/15/15 No Physical Exam Physical Exam Constitutional: Well developed, well nourished, no acute distress, non-toxic appearance. [] Skin: Right ventral thumb with a laceration mid phalanx in V-shaped roughly 2 cm long. There is no tendon involvement. Full range of motion to the right thumb. Adequate radial sensation to the right thumb. +2 right radial pulse. Cap refill less than 2 seconds the right thumb. Back: No tenderness, no CVA tenderness. [] Extremities: No tenderness, no cyanosis, no clubbing, ROM intact, no edema. [] Neurologic: Alert and oriented X 3, normal motor function, normal sensory function, no focal deficits noted. [] Psychologic: Affect normal, judgement normal, mood normal. [] Current Patient Data Vital Signs Vital Signs Date Time Temp Pulse Resp B/P (MAP) Pulse Ox O2 Delivery O2 Flow Rate FiO2 10/03/21 12:45 97.7 61 20 170/78 (108) 99 Room Air EKG EKG [] Radiology/Procedures Radiology/Procedures Laceration/Wound Repair Wound Location: Right thumb laceration Wound's Depth, Shape: V Wound Length (cm): Proximately 2 cm Wound Explored: clean Irrigated w/ Saline (ccs): 20 Betadine Prep?: Y Anesthesia: 1% of lidocaine Volume Anesthetic (ccs): Approximately 3 cc Wound Repaired With: Ethilon Suture Size/Type: 4.0/interrupted sutures Number of Sutures: 4 Progress : Wound was covered with nonstick Heart Score C/O Chest Pain: N/A Risk Factors: Risk Factors: DM, Current or recent (<one month) smoker, HTN, HLP, family history of CAD, obesity. Risk Scores: Risk Factors: DM, Current or recent (<one month) smoker, HTN, HLP, family history of CAD, obesity. Course & Med Decision Making Course & Med Decision Making Pertinent Labs and Imaging studies reviewed. (See chart for details) This is a 61-year-old male with left hand laceration that was closed by me as noted in procedures. Wound care instructions and return precautions provided. Tetanus updated. Dragon Disclaimer Dragon Disclaimer This electronic medical record was generated, in whole or in part, using a voice recognition dictation system. Departure Departure: Impression: Primary Impression: Finger laceration Disposition: HOME / SELF CARE / HOMELESS Condition: STABLE Referrals: RIZWANA THRASHER MD (PCP) Follow-up with your primary care doctor or the emergency room in 7 days for stitches to be removed Patient Instructions: Fingertip Laceration Additional Instructions: Your laceration to the right thumb was closed with stitches. Keep the area cl tarun and dry. You can shower and wash your hands but do not soak the area. Apply Neosporin to the laceration site twice a day for 7 days. Monitor the area for signs of infection including but not limited to increased redness, warmth, yellow drainage from, or see your primary care doctor. Please follow-up with the emergency room or the primary care doctor in 7 days for stitches to be removed Problem Qualifiers Primary Impression: Finger laceration Encounter type: initial encounter Finger: thumb Damage to nail status: without damage Foreign body presence: without foreign body Laterality: right Qualified Codes: S61.011A - Laceration without foreign body of right thumb without damage to nail, initial encounter ZEUS RAMÍREZ APRN Oct 03, 2021 14:00
[2021-10-03 14:05] VITALS: BP 161/81
== END 2021-10-03 14:05 | disposition home or self-care (01) ==
LOC: ER 12:35
DX: S61.011A Laceration without foreign body of right thumb without damage to nail, initial encounter (principal); F41.9 Anxiety disorder, unspecified; I25.10 Atherosclerotic heart disease of native coronary artery without angina pectoris; F32.9 Major depressive disorder, single episode, unspecified; E11.9 Type 2 diabetes mellitus without complications; K21.9 Gastro-esophageal reflux disease without esophagitis; E78.00 Pure hypercholesterolemia, unspecified; I10 Essential (primary) hypertension; E03.9 Hypothyroidism, unspecified; Z87.891 Personal history of nicotine dependence; Z88.8 Allergy status to other drugs, medicaments and biological substances; Z88.1 Allergy status to other antibiotic agents; W27.2XXA Contact with scissors, initial encounter; Y93.89 Activity, other specified; Y92.89 Other specified places as the place of occurrence of the external cause; Y99.8 Other external cause status
CPT/HCPCS: 12001; 90471; 90715; 99283